=== PATIENT | female | born 1935 | race Caucasian/White ===

== ENCOUNTER 2017-10-13 05:25 | Day surgery (SDC) | payer OTHER ==
[~2017-10-13] VITALS: Ht 160 cm; Wt 63.5 kg
--- NOTE | ~2017-10-13 | O ---
[facility] [place] [address] OPERATIVE REPORT Name: ELIZA WOMACK Room #: DEP [facility] M..#: [id number] Admission: 10/13/17 Attend Phys: Deshaun Newton MD Discharge: 10/13/17 Date of : 33 Report #: [id number] THIS REPORT FOR: //name// CC: Dr. 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 PROCEDURE: Bilateral lower lid ectropion repair with right transconjunctival lower lid and cheek lift. SURGEON: Deshaun Newton M.D. C[employer]UT[employer] REPRESENTATIVE: None. ANESTHESIA: MAC. COMPLICATIONS: None. 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 She presents today for bilateral lower lid ectropion repair with a right-sided lower lid and cheek lift in order to attempt to preserve her ocular surface milieu. Informed consent was obtained to include but not limited to the potential risk for loss of vision, bleeding, infection, failure to improve the problem and the potential need for further surgery or treatment. DESCRIPTION OF PROCEDURE: The patient was taken to the operating room, where 2% Xylocaine with epinephrine mixed with equal parts of 0.75% Marcaine with Wydase was administered transcutaneously and transconjunctivally to each lower lid and lateral canthus. On the right side, the cheek was additionally anesthetized as was the infratemporal fossa. The patient was subsequently prepped and draped in the usual sterile fashion. Attention was first turned to the left side. A Awais clamp was used to clamp the left lateral canthus, following which a sharp canthotomy and cantholysis were performed. A tarsal strip was then performed laterally, removing the [facility] [address] [place] [address] OPERATIVE REPORT Name: ELIZA WOMACK Room #: DEP [facility] M.R.#: [id number] Admission: 10/13/17 Attend Phys: Deshaun Newton MD Discharge: 10/13/17 Date of : 33 Report #: [id number] lash-bearing portion of the redundant lid margin and the redundant tarsal plate. Hemostasis was then re-achieved. The tarsal strip was then re-suspended from the internal portion of the lateral orbital tubercle with interrupted 5-0 Prolene sutures. The subcutaneous structures and the skin were closed with interrupted 6-0 plain gut sutures. The right lateral canthus was then clamped with a Frias clamp. Sharp canthotomy and cantholysis were then performed. A tarsal strip was then prepared laterally, removing the lash-bearing portion of the redundant lid margin and the redundant tarsal plate. Hemostasis was then re-achieved. A transconjunctival incision was then made below the inferior border of the tarsal plate. The dissection was then carried down into the premalar tissues. Hemostasis was then re-achieved with diligent pinpoint monopolar cautery. The lower lid and cheek tissues were then elevated and resuspended with interrupted chromic sutures. This lifted the cheek well. The tarsal strip was then resuspended from the internal portion of the lateral orbital tubercle with interrupted 5-0 Prolene sutures. The subcutaneous structures and the skin were then closed with interrupted 6-0 plain gut sutures. Erythromycin ophthalmic ointment was then placed on the incisions and the patient subsequently transported to the recovery area, having tolerated the procedures well, with no anesthetic or operative complications being noted. <ELECTRONICALLY SIGNED> By: Deshaun Newton MD 10/20/17 0616 [id number] Deshaun Newton MD /nt
[~2017-10-13 05:25] MED LIST: ANASTROZOLE1 MG PO; ARTIFICIAL TEA1 EACH OPHTHALMIC; CLONIDINE HCL0.1 M1 PO; ENALAPRIL-HCTZ1 EACH PO; ESCITALOPRAM OX10 MG PO; GLIMEPIRIDE1 MG PO; METFORMIN HCL1000 MG PO; NORVASC5 MG PO; PIOGLITAZONE15 MG; PRAVACHOL20 MG PO; TYLENOL EXTRA500 MG PO; VITAMIN D1000 UNI2 PO
[2017-10-13 11:30] VITALS: BP 178/68
== END 2017-10-13 15:35 | disposition home or self-care (01) ==
LOC: OR 05:25 → TBA 05:25 → OR 11:09
DX: H02.105 Unspecified ectropion of left lower eyelid (principal); H02.102 Unspecified ectropion of right lower eyelid; H02.532 Eyelid retraction right lower eyelid; H02.202 Unspecified lagophthalmos right lower eyelid; H18.9 Unspecified disorder of cornea; I10 Essential (primary) hypertension; E11.9 Type 2 diabetes mellitus without complications; E78.00 Pure hypercholesterolemia, unspecified; F41.9 Anxiety disorder, unspecified; F32.9 Major depressive disorder, single episode, unspecified; Z85.038 Personal history of other malignant neoplasm of large intestine; Z85.3 Personal history of malignant neoplasm of breast; Z98.41 Cataract extraction status, right eye; Z98.42 Cataract extraction status, left eye; Z79.899 Other long term (current) drug therapy; Z88.0 Allergy status to penicillin; Z88.2 Allergy status to sulfonamides; Z98.890 Other specified postprocedural states
CPT/HCPCS: 50010; 50101; 50386; 50398; 51636; 56527; 56531; 62110; 62850; 70005